=== PATIENT | female | born 1995 | race Caucasian/White ===

== ENCOUNTER → 2020-07-08 | Outpatient (CLI) | payer BC ==
[~2020-07-08] MED LIST: IOPAMIDOL 370 MG/ML 200 ML INFUS..BTL INJ ONE; SODIUM CHLORIDE 0.9% 50ML 50 ML ONE
[2020-07-08 08:35] LABS: BASOPHILS % 0.8 % (0.0-1.0); EOSINOPHILS # (AUTO) 0.1 (0.0-0.4); EOSINOPHILS % 1.5 % (0.0-6.0); HEMATOCRIT 43.5 % (34.2-44.1); HEMOGLOBIN 14.6 g/dL (12.0-16.0); LYMPHOCYTES # (AUTO) 1.4 (1.0-3.2); LYMPHOCYTES % 34.1 % (18.0-39.1); MEAN CORPUSCULAR HEMOGLOBIN 32.7 pg (28-32); MEAN CORPUSCULAR HGB CONC 33.6 g/dL (31-35); MEAN CORPUSCULAR VOLUME 97.3 fL (81-99); MONOCYTES # (AUTO) 0.2 (0.2-0.8); NEUTROPHILS # (AUTO) 2.3 (2.1-6.9); NEUTROPHILS % 57.6 % (38.7-80.0); PLATELET COUNT 188 x10e3/uL (140-360); RED BLOOD COUNT 4.47 x10e6/uL (3.6-5.1); RED CELL DISTRIBUTION WIDTH 11.9 % (11.7-14.4)
[2020-07-08 08:55] LABS: ALANINE AMINOTRANSFERASE 13 IU/L (0-55); ALBUMIN 4.3 g/dL (3.5-5.0); ALBUMIN/GLOBULIN RATIO 1.4 (0.8-2.0); ALKALINE PHOSPHATASE 60 IU/L (40-150); ANION GAP 11.5 mmol/L (8-16); BLOOD UREA NITROGEN 10 mg/dL (7-26); BUN/CREATININE RATIO 11 (6-25); CALCIUM 9.2 mg/dL (8.4-10.2); CARBON DIOXIDE 26 mmol/L (22-29); CHLORIDE 105 mmol/L (98-107); CREATININE, SERUM 0.88 mg/dL (0.57-1.11); EST GLOMERULAR FILTRATION RATE > 60 ML/MIN (60-); GLUCOSE 84 mg/dL (74-118); LACTATE DEHYDROGENASE 148 IU/L (125-220); POTASSIUM 3.5 mmol/L (3.5-5.1); SODIUM 139 mmol/L (136-145)
[2020-07-08 09:16] LABS: FERRITIN 65.01 ng/mL (4.63-204.00); THYROID STIMULATING HORMONE 5.674 uIU/mL (0.350-4.940)
[2020-07-08 09:17] LABS: ERYTHROCYTE SEDIMENTATION RATE 2 mm/hr (0-20)
--- NOTE | 2020-07-08 09:41 | Diagnostic Imaging Report ---
ADDENDUM #1 Current study was compared to prior outside CT neck performed December 30, 2019, June 24, 2019, December 17, 2018 and August 29, 2018. No new or concerning adenopathy when compared to most recent prior exam performed December 30, 2019. Unchanged dystrophic calcification of the right paratracheal region and biapical pleural thickening. Signed by: Dr. Milly Mathis M.D. on 07/09/2020 6:19 PM ORIGINAL REPORT Examination:CT SOFT TISSUE NECK WITH CONTRAST History: ^[id number] ^[id number] ^MIXED CELLULARITY HODGKIN LYMPHOMA Comparison studies: None Technique: Axial images from the skull base to the thoracic inlet Coronal and sagittal reformatted images. Dose modulation, iterative reconstruction, and/or weight based adjustment of the mA/kV was utilized to reduce the radiation dose to as low as reasonably achievable. Intravenous contrast: 100mL of Isovue 370. Findings: Soft tissues: No abnormalities. Aerodigestive tract: No abnormality. Lymph nodes: No radiographically significant adenopathy. Vessels: Arteries and veins are patent. Thyroid gland: Normal in size and homogeneous. Submandibular glands: Normal in size and homogeneous. Parotid glands: Normal in size and homogeneous. Orbits: No abnormalities. Paranasal sinuses: Clear. Temporal bones: No abnormalities. Skull base and facial bones: Intact. Cervical spine: No disc bulge or herniation or foraminal or canal stenosis. Visualized lung apices: Biapical pleural thickening. Dystrophic calcifications right paratracheal region represents treated lymph nodes. Please refer to concurrent chest CT for details. IMPRESSION: No concerning cervical lymphadenopathy. Signed by: Dr. Milly Mathis M.D. on 07/08/2020 9:37 AM
--- NOTE | 2020-07-10 08:42 | Diagnostic Imaging Report ---
EXAMINATION: CT scan of the chest with contrast. TECHNIQUE: Spiral CT images of the chest were performed from the lung apices to the level of the adrenal glands after the intravenous administration of 100 cc of Isovue 370. Coronal and sagittal reformatted images were obtained. COMPARISON: CT chest 12/30/2019, 06/24/2019, 12/17/2018, 08/29/20018, a stable 4 mm nodule in the lateral right lower lobe 03/19/2018 CLINICAL HISTORY: Mixed cellularity Hodgkin's lymphoma, 2 year follow-up DISCUSSION: LINES/TUBES: None. LUNGS AND AIRWAYS: Stable mild biapical pleural parenchymal scarring (series 700, image 27). Stable 4 mm pulmonary nodule in the right lower lobe since exam dated 08/29/2018 (series 700, image 64). No other pulmonary nodules. No masses or consolidation. No fibrosis or bronchiectasis. Airways are clear, without endobronchial lesions. PLEURA: No pneumothorax or pleural effusions. HEART AND MEDIASTINUM: Thyroid is unremarkable. Heart size is normal. No pericardial effusion. Aorta is nonaneurysmal. Main pulmonary artery is normal in caliber. Stable radiopaque metallic densities between the left and right atria, consistent with prior ASD repair. LYMPH NODES: No mediastinal, hilar, supraclavicular or axillary adenopathy. Stable right lower paratracheal subcentimeter calcified densities since exam dated 08/29/2018 (series 603, image 51), consistent with previously treated lymph nodes. ABDOMEN: Limited contrast-enhanced views of the upper abdomen show no abnormality within the visualized liver, spleen, pancreas, or kidneys. The adrenal glands are normal. BONES AND SOFT TISSUES: No aggressive lytic or suspicious focal sclerotic lesions. Soft tissues are grossly unremarkable. IMPRESSION: 1. No evidence of residual, recurrent or metastatic disease in the chest. 2. Stable 4 mm pulmonary nodule since 08/29/2018, which is presumed benign given its stability for almost two years. Signed by: Dr. Walker Álvarez M.D. on 07/10/2020 8:39 AM
== END ==
LOC: CT 08:05
PROVIDERS: ATTEND Internal Medicine
DX: C81.24 Mixed cellularity Hodgkin lymphoma, lymph nodes of axilla and upper limb (principal)
CPT/HCPCS: 36415; 70491; 71260; 80053; 81025; 82607; 82728; 83615; 84443; 85025; 85651; Q9967